=== PATIENT | female | born 1985 | race African-American/Black ===

== ENCOUNTER 2017-04-07 10:08 | Observation (INO) | payer MEDICAID ==
[~2017-04-07] VITALS: Ht 157.5 cm; Wt 97.1 kg
[2017-04-07] MEDS ORDERED: PNV1TABL76 PO (10:21)
[2017-04-07] MEDS ORDERED: ALBU05 IH (10:35)
== END 2017-04-07 11:55 | disposition home or self-care (01) ==
LOC: L&D 10:08
PROVIDERS: ADMIT Specialist; ATTEND Specialist
DX: O62.9 Abnormality of forces of labor, unspecified (principal); Z3A.38 38 weeks gestation of pregnancy
CPT/HCPCS: 99281; G0378

== ENCOUNTER 2018-03-14 16:23 | Emergency (ER) | payer MEDICAID, OTHER ==
[~2018-03-14] VITALS: Ht 157.5 cm; Wt 91.0 kg
[~2018-03-14 16:23] MED LIST: ALBU05 IH; PNV1TABL76 PO
[2018-03-14] MEDS ORDERED: ACETAMINOPHEN 325MG TABLET PO ONE ×2 (18:15→23:00)
[2018-03-14 19:17] LABS: BASOPHILS % 0.7 % (0.0-2.0); EOSINOPHILS % 2.2 % (0.0-5.0); HEMATOCRIT. 32.8 % (36.0-48.0); HEMOGLOBIN. 10.6 g/dL (12.0-16.0); LYMPHOCYTES % 18.7 % (20.0-50.0); MEAN CORPUSCULAR HEMOGLOBIN 23.7 pg (28.0-32.0); MEAN PLATELET VOLUME 8.8 fl (7.4-10.4); MONOCYTES % 4.8 % (2.0-8.0); NEUTROPHILS % 73.6 % (40.0-76.0); PLATELET 363 x1000/uL (130-400); RED BLOOD CELL COUNT 4.49 mill/uL (4.2-5.4); RED CELL DISTRIBUTION WIDTH 19.6 % (11.6-14.6)
[2018-03-14 19:25] LABS: CHLORIDE 108 mEq/L (98-107)
[2018-03-14 19:30] LABS: HCG SCREEN POSITIVE
[2018-03-14 19:53] LABS: B-HCG QUANTITATIVE 23401 mIU/mL (<3)
[2018-03-14 21:11] LABS: CLARITY URINE CLOUDY (CLEAR); COLOR URINE YELLOW (YELLOW); KETONES URINE NEGATIVE (NEGATIVE); LEUKOCYTE ESTERASE URINE 2+ (NEGATIVE); NITRITE URINE NEGATIVE (NEGATIVE); OCCULT BLOOD URINE NEGATIVE (NEGATIVE); PROTEIN URINE NEGATIVE (NEGATIVE); SPECIFIC GRAVITY URINE 1.013 (1.005-1.030); UROBILINOGEN URINE 0.2 E.U./dL (0.2-1.0)
[2018-03-14 21:50] VITALS: BP 120/71
== END 2018-03-14 23:21 | disposition home or self-care (01) ==
LOC: ER 16:23
DX: O20.0 Threatened abortion (principal); D50.9 Iron deficiency anemia, unspecified; J45.909 Unspecified asthma, uncomplicated; Z98.890 Other specified postprocedural states; Z3A.12 12 weeks gestation of pregnancy
CPT/HCPCS: 36415; 76705; 76801; 80053; 81003; 84702; 84703; 85025; 86850; 86900; 99285

== ENCOUNTER 2019-06-29 08:43 | Emergency (ER) | payer MEDICAID, OTHER ==
[~2019-06-29] VITALS: Ht 157.5 cm; Wt 95.0 kg
[2019-06-29] MEDS ORDERED: TETANUS, DIPHTHERIA, PERTUSSIS VAC/PF 0.5ML (>7YR OLD) IM ONE (10:45)
[2019-06-29] MEDS ORDERED: AMOXICILLIN/POTASSIUM CLAVULANATE 875/125MG TAB PO ONE (10:45)
[2019-06-29] MEDS ORDERED: HYDROCODONE/ACETAMINOPHEN 5/325MG TABLET PO ONE (10:45)
[2019-06-29 11:00] VITALS: BP 115/72
== END 2019-06-29 11:31 | disposition home or self-care (01) ==
LOC: ER 09:03
DX: S81.851A Open bite, right lower leg, initial encounter (principal); W54.0XXA Bitten by dog, initial encounter; Y93.89 Activity, other specified; Y92.89 Other specified places as the place of occurrence of the external cause; Y99.8 Other external cause status; J45.909 Unspecified asthma, uncomplicated; E11.9 Type 2 diabetes mellitus without complications; Z98.890 Other specified postprocedural states
CPT/HCPCS: 73590; 90471; 90715; 99283